=== PATIENT | male | born 1950 | race Caucasian/White ===

== ENCOUNTER 2016-08-26 17:44 | Emergency (ER) | payer OTHER ==
--- NOTE | 2016-08-26 18:56 | DIAGNOSTIC IMAGING REPORT ---
PROCEDURE: XR CHEST 2 VIEW INDICATION: FEVER TECHNIQUE: PA and lateral views. COMPARISON: Compared to chest x-ray from acute abdominal series on 10/03/2015. FINDINGS: Allowing for suboptimal inspiration, lungs are clear. Heart and mediastinum are normal. There mild degenerative changes thoracic spine with mild 10% old compression deformities of mid thoracic vertebral bodies. IMPRESSION: 1. Negative chest.
--- NOTE | 2016-08-26 19:06 | DIAGNOSTIC IMAGING REPORT ---
PROCEDURE: CT HEAD W/WO CONTRAST INDICATION: HX TUMOR. FEVER. ALTERED. TECHNIQUE: Axial scans before and after 75 ml of Isovue 300 through the head, with coronal and sagittal re-formations COMPARISON: Brain MRI 05/15/2013. FINDINGS: Interval left frontotemporal craniotomy. 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 Invasion of the left cavernous sinus and encasement of the left carotid artery are unchanged. Invasion of the left sphenoid sinus and left orbital apex are V I there is displacement of the left side of the optic chiasm. unchanged. There is a new 2 x 3 cm area of left frontal postsurgical encephalomalacia inferiorly. There is no acute hemorrhage, acute CVA or midline shift. Sulci and ventricular system are unremarkable. Mastoids and visualized sinuses are clear. IMPRESSION: 1. No acute intracranial abnormality 2. 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 Postoperative encephalomalacia of the left frontal lobe inferiorly 4. Results discussed with Dr. Masters
--- NOTE | 2016-08-27 06:24 | ED CLINICAL REPORT ---
Clinical Report - Physicians/Mid Levels [facility] [address] [place] [address] 08/26/2016 17:46 Patient: KUN BENEDICT Arrived- By ambulance. Historian- patient, EMS personnel and family. HISTORY OF PRESENT ILLNESS Chief Complaint: CONFUSION. This started today and is still present (staying the same). It was abrupt in onset and has been constant but is not gone now. Patient was last known well (yesterday). The patient has been confused. (patient unable to communicate and problems with word finding). No weakness or numbness. No difficulty walking. He has had one recent fall (today). This was not associated with loss of consciousness. Usually is alert and oriented X3 and usually has normal mobility. (patient with hx of brain tumor. FAST exam negative per EMS. Patient febrile on EMS report however patient without subjective fever or chills.). Similar symptoms previously: None. Recent medical care: Not recently seen/assessed. REVIEW OF SYSTEMS No fever, headache, chest pain or skin rash. All systems otherwise negative, except as recorded above. PAST HISTORY See nurses notes. Medications: Testosterone Transdermal. Synthroid Oral. Hydrocortisone Oral. Allergies: No Known Drug Allergy. SOCIAL HISTORY Never smoker. Occasional alcohol use. No drug use. No recent travel. Is a local resident. FAMILY HISTORY Negative. ADDITIONAL NOTES The nursing notes have been reviewed. PHYSICAL EXAM Vital Signs: 08/26/2016 22:30 BP: 135/73. HR: 108. RR: 23. O2 saturation: 92%. Blood pressure normal. Oxygen saturation normal. Appearance: Alert. No acute distress. Head: Head atraumatic. Eyes: Pupillary exam: (left constricts less that the right). Right pupil 3mm, round and reactive to light directly and consensually and with accommodation. Left pupil: 3mm, round and reactive to light directly and consensually and with accommodation. ENT: Normal ENT inspection. Airway intact. Moist mucous membranes. Pharynx normal. (old scar to scalp on left. well healed. remote.). Neck: Normal inspection. Neck supple. CVS: Normal heart rate and rhythm. Heart sounds normal. Pulses normal. Respiratory: No respiratory distress. Breath sounds normal. Abdomen: Soft and nontender. No organomegaly. Back: Normal inspection. Skin: Skin warm and dry. Normal skin color. No rash. Normal skin turgor. Extremities: Extremities exhibit normal ROM. No lower extremity edema. Neuro: Alert. Mood/affect normal. Moderate dysphasia and dysarthria. Cranial nerves normal (as tested). No abnormal finger-nose test. No motor deficit. No sensory deficit. Reflexes normal. Normal gait. LABS, X-RAYS, AND EKG CT Head: No hemorrhage and no midline shift. (midline mass that is smaller when compared to prior exam on 2013 MRI. No significant edema.). Head CT performed with and without contrast. The study was independently viewed by me and interpreted by the radiologist. The study was discussed with the radiologist (via phone and pacs). Laboratory Tests: CBC w Diff: (EDUARDO: 08/26/2016 18:00) ( [facility] [place] 08/26/2016 18:21) Final results Test Result Flag Units (Reference) WHITE BLOOD COUNT 13.2 H K/uL (4.5-11.5) RED BLOOD COUNT 5.11 M/uL (4.50-5.90) HEMOGLOBIN 15.6 gm/dL (13.5-17.5) HEMATOCRIT 46.6 % (41.0-53.0) MEAN CELL VOLUME 91 fL (80-100) MEAN CORPUSCULAR HGB 31 pg (26-34) MEAN CORPUSCULAR HGB CONC 34 g/dL (31-37) RED CELL DISTRIBUTION WIDTH 14.1 % (11.6-14.8) PLATELET COUNT 280 K/uL (150-400) NEUTROPHIL % 75.8 H % (50-75) LYMPH % 13.2 L % (25-40) MONO % 9.9 % (3-14) EOSINOPHIL % 0.7 % (0-4) BASOPHIL % 0.4 % (0-2) PT with INR: (EDUARDO: 08/26/2016 18:00) ( MsgRcvd 08/26/2016 18:27) Final results Test Result Flag Units (Reference) INR 1.0 (0.8-1.2) Low Intensity Therapy: INR 1.5-2.0 PT range 18.5-23.1Mod.Intensity Therapy: INR 2.0-3.0 PT range 23.1-31.5High Intensity Therapy: INR 2.5-3.5 PT range 27.4-35.5High Intensity Therapy 2: INR 3.0-4.0 PT range 31.5-39.3 APTT 38 H SECONDS (24-34) Lactate, Serum: (EDUARDO: 08/26/2016 18:00) ( MsgRcvd 08/26/2016 18:58) Final results Test Result Flag Units (Reference) LACTIC ACID 1.5 mmol/L (0.4-2.0) [id number]: (EDUARDO: 08/26/2016 18:00) ( MsgRcvd 08/26/2016 18:59) Final results Test Result Flag Units (Reference) PROCALCITONIN <0.5 ng/mL (0-0.5) PCT Concentration: Interpretation : Risk/option for action PCT <=0.5 ng/mL : Systemic : Low risk forinfection(sepsis): progression to severeis not likely. : systemic infection.Local bacterial : CAUTION-PCT levelsinfection is : below 0.5 ng/mL do notpossible. : exclude an infection,because localizedinfections (withoutsystemic signs) may beassociated with suchlow levels. If PCT ismeasured very earlyafter a bacterialchallenge (usually <6hours), these valuesmay still be low. Inthis case PCT shouldbe re-assessed 6-24hours later. PCT >0.5 and : Systemic infection: Moderate risk for<= 2 ng/mL : (sepsis) is : progression to severepossible, but : systemic infection.other conditions : The patient should beare known to : closely monitoredelevate PCT. : both clinically andby re-assessing PCTwithin 6-24 hours. PCT > 2 ng/mL : Systemic infection: High risk for(sepsis) is likely: progression to severeunless other : systemic infection.causes are known. : PCT >= 10 ng/mL : Important systemic: High likelihood ofinflammatory : severe sepsis orresponse, almost : septic shock.exclusively due to:severe bacterial :sepsis or septic :shock. : CMP: (EDUARDO: 08/26/2016 18:00) ( MsgRcvd 08/26/2016 18:58) Final results Test Result Flag Units (Reference) GLUCOSE 101 mg/dL (70-110) BUN 13 mg/dL (7-18) CREATININE 1.1 mg/dL (0.6-1.3) Estimated GFR >60 mL/min Estimated GFR- >60 mL/min Note: Persistent reduction over 3 months in eGFR<60 mL/min/1.73 m2 defines CKD. Patients with eGFR values>=60 mL/min/1.73 m2 may also have CKD if evidence ofpersistent proteinuria. Additional information may be foundat www.kidney.org. SODIUM 141 mmol/L (136-145) POTASSIUM 4.2 mmol/L (3.5-5.1) CHLORIDE 102 mmol/L (98-107) CARBON DIOXIDE 32 mmol/L (21-32) CALCIUM 8.6 mg/dL (8.5-10.1) TOTAL PROTEIN 7.1 g/dL (6.4-8.2) ALBUMIN 3.6 g/dL (3.3-5.0) BILIRUBIN, TOTAL 0.9 mg/dL (0.0-1.0) ALKALINE PHOSPHATASE 51 U/L (46-116) AST (SGOT) 47 H U/L (15-37) ALT (SGPT) 38 U/L (12-78) . PROGRESS AND PROCEDURES Course of Care: The patient is a pleasant 66 yo male with hx of brain tumor and expressive aphasia. Able to follow commands and understands speech. Appears to have word finding problems. Had discussion with patient about time of onset and hx. Patient last known well yesterday per son. No clear time of onset and hx of brain tumor. Patient is not a candidate for TPA. Patient with brain tumor and need for evaluation with CT w and wo ordered. Patient agreeable to plan. Code stroke not called due to patient not being a candidate for TPA and unclear time of onset. NIH stroke scale of 4 Work up shows patient with mass. Had discussion about mass and possble symptoms and need for further evaluation. Consult placed to patient's neurologist at . Spoke with Dr. Monzon who felt the patient should be evaluated for stroke first for his symptoms. Spoke with stroke neuro at [facility] who states there is a likely cause and effect with the mass and need for the patient to be admitted to under Dr. Lackey. Spoke with patient and son about consults and need to admit patient for further evaluation and managment. At this time patient resting in bed in no acute distress. Informed consent obtained via phone for transfer from son. patient to be transported via ground EMS to . No other concerns at this time. Patient's infectious work up is negative at this time. Chest is clear and UA is normal. Patient has been afebrile since being in the ED. Do not feel abx are warranted at this time. Symptoms like due to tumor not infection. Patient to be transferred for further work up and evaluation. Critical care performed (65 minutes). Time is exclusive of separately billable procedures. Time includes: direct patient care, patient reassessment, coordination of patient care, interpretation of data (laboratory data and chest xrays), review of patient's medical records, medical consultation, family consultation regarding treatment decisions and documentation of patient care. Consult obtained from neurology. and stroke neuro. Disposition: Transferred to [facility]. 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 (Electronically signed by Donte Masters Dr. 08/26/2016 23:23)
--- NOTE | 2016-08-27 06:24 | ED NURSING NOTES ---
Clinical Report - Nurses [place] [address] [place] [address] 08/26/2016 17:46 Patient: KUN BENEDICT TRIAGE Triage time 1750 pm. Acuity: LEVEL 2. Chief Complaint: FALL, onto a carpeted surface ([place]). --18:20 Mattoon, November, R.N. 18:14 08/26/16. BP: 124/76 (regular adult cuff) taken on the left arm, while sitting. HR: 109 (tachycardic). RR: 16. O2 saturation: 97% on room air. Temp: 99.5 F (oral). --18:20 Mattoon, November, R.N. Weight: 72.5 kg estimated. Height/Length: 67 inches Estimated. BMI: 25.1. --18:13 Bruno, November, R.N. Medications Hydrocortisone Oral. --18:14 Bruno, November, R.N. Synthroid Oral. --18:15 Mattoon, November, R.N. Testosterone Transdermal. --18:45 Mattoon, November, R.N. Medication/allergy information source: the patient and EMS (Son Alonso). --18:20 Bruno, November, R.N. Allergies No Known Drug Allergy. --18:15 Bruno, November, R.N. History Historian: patient and family. Accompanied by family and son (Alonso). This occurred (90 minutes). ( Patient complains of back pain and speech is garbled). 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 Trauma activation: Pre-hospital notification of patient arrival was received. SOCIAL HX: Never smoker. Occasional alcohol use. ABUSE ASSESSMENT: No report of abuse. --18:20 Mattoon, November, R.N. Interventions ID band on patient. To treatment room. --18:20 Bruno, November, R.N. PHYSICAL ASSESSMENT To room via stretcher. GENERAL / NEURO / PSYCH: Alert. The patient is disoriented to place, time and situation. Not disoriented to person. HEENT: Pupils equal, round and reactive to light. RESPIRATORY: Respirations not labored. Chest nontender. Breath sounds within normal limits. CVS: Normal heart rate and rhythm. Pulses within normal limits. Capillary refill less than 2 seconds. GI / : Abdomen soft and nontender. EXTREMITIES: Extremities exhibit normal ROM. SKIN: Skin intact. Skin is warm and dry. ( slight amount of dried blood on bottom lip). BACK: Normal inspection of the back. ( No pain noted on palapation). --18:22 Bruno November RElmoN. NURSING PROGRESS NOTES Patient transported to [facility] by stretcher with tech. (1800 pm). --18:22 BrunoNovember RElmoNElmo 18:08 08/26/2016 Site #1 started via IV in the left antecubital space with an 18g angiocath, with aseptic technique and good blood return; two attempts. Blood drawn: rainbow set and cultures x1. Labeled in the presence of the patient and sent to the lab. Saline lock flushed with 10 mL saline. --18:23 Bruno November, RElmoN. Patient gowned. Two patient identifiers checked. :family confirmed. Call light placed in reach. Side rails up x 2. Bed placed in lowest position. Brakes of bed on. --18:23 BrunoNovember RElmoN. 18:40 08/26/2016 Started bag #1 1000 mL IV Fluids IV NS (Saline); bolus of 1000 mL over 1 hour(s) via site #1 via IV pump. Allergies verified and confirmed 5 rights. IV patency established. IV site checked: no pain, redness, or swelling. IV flushed thoroughly pre- and post-medication administration. --18:40 Brunonovember RElmoN. 18:40 08/26/16. BP: 130/80. HR: 107. RR: 16. O2 saturation: 95% on room air. --18:42 Bruno November R.N. Monitoring of patient in place. Pulse oximeter applied. power plant assistant applied- Lead II and V5; monitor alarms on. NIBP monitor applied; monitor alarms on. Patient gowned. Reassurance given. Two patient identifiers checked. Call light placed in reach. Side rails up x 2. Bed placed in lowest position. Brakes of bed on. --18:43 Mattoonnovember R.N. 19:02 08/26/16. BP: 131/79. HR: 96. RR: 22. O2 saturation: 95%. --19:02 Mattoonnovember R.N. 19:45 08/26/2016 IV Fluids IV NS Discontinued: bag #1 completed. Total amount infused: 1000 mL. IV patency established. IV site checked: no pain, redness, or swelling. IV flushed thoroughly. --20:31 Mattoonnovember R.N. 20:32 08/26/2016 Started bag #1 1000 mL IV Fluids IV NS (Saline); at 250 mL/hr over 4 hour(s) via site #1 via IV pump. Allergies verified and confirmed 5 rights. IV patency established. IV site checked: no pain, redness, or swelling. IV flushed thoroughly pre- and post-medication administration. --20:37 Bruno November RPedro. Patient gowned. Two patient identifiers checked. Call light placed in reach. Side rails up x 2. Bed placed in lowest position. Brakes of bed on. --20:37 Mattoonnovember R.N. 20:36 08/26/16. BP: 131/81. HR: 100. RR: 21. O2 saturation: 92%. Temp: 98.7 F (oral). --20:37 Mattoon November R.N. Two patient identifiers checked. Call light placed in reach. Side rails up x 2. Bed placed in lowest position. Brakes of bed on. --21:33 Mattoonnovember R.N. 21:32 08/26/16. BP: 123/71. HR: 105. RR: 25. O2 saturation: 97%. --21:33 Bruno November RElmoN. Family informed about plan of care (Advised Son Alonso that transfer of care to 4N phone number [phone]). ( Told son that medic will be arriving about 1120 pm to night to transport his father to . At this time he has no further questions). --22:47 Bruno November, R.N. 20:08/26/16. BP: 142/119. HR: 107. RR: 18. O2 saturation: 86%. --22:51 Anita Carr, R.N. 20:08/26/16. BP: 134/88. HR: 105. RR: 23. O2 saturation: 92%. --22:52 Anita Carr, R.N. 20:08/26/16. BP: 143/86. HR: 105. RR: 22. O2 saturation: 94%. --22:52 Anita Carr, R.N. 21:08/26/16. BP: 125/112. HR: 105. RR: 23. O2 saturation: 94%. --22:52 Anita Carr, R.N. 21:08/26/16. BP: 142/73. HR: 105. RR: 23. O2 saturation: 94%. --22:53 Anita Carr, R.N. <<STRICKEN ENTRY-- 21:08/26/16. BP: 142/73. HR: 105. RR: 23. O2 saturation: 94%. --22:53 BrunoAnita kidd, R.N. --END STRIKE>> Correction. --22:54 Mattoon, Anita, R.N. 21:08/26/16. BP: 128/74. HR: 104. RR: 24. O2 saturation: 96%. --22:54 Bruno, Anita, R.N. 21:08/26/16. BP: 127/73. HR: 109. RR: 23. O2 saturation: 97%. --22:55 BrunoAnita kidd, R.N. 22:08/26/16. BP: 122/73. HR: 106. RR: 24. O2 saturation: 91%. --22:56 BrunoAnita kidd, R.N. 22:08/26/16. BP: 125/72. HR: 103. RR: 24. O2 saturation: 92%. --22:56 Bruno, Anita, R.N. 22:08/26/16. BP: 135/73. HR: 108. RR: 23. O2 saturation: 92%. --22:57 MattoonNovember, R.N. Care transferred and report given (Crispin @ 4 [address]). --23:09 BrunoNovember, R.N. Care transferred and report given (RUPALI RN). --23:27 MattoonNovember, R.N. DISPOSITION / DISCHARGE Report was given to a nurse via a phone call. Report included patient's care, treatment, medications, reviewed medication reconcilliation, and condition (including any recent changes or anticipated changes). All questions were answered. Report was acknowledged and care was transferred. ( Radiology images pushed to ). --23:10 MattoonNovember, R.N. Departure time: 0005. Transferred. Transported via ambulance by nurse and transport team with monitor, IV, O2, emergency medications and ambu bag. --00:05 Femi Cardoza R.N. 00:04 08/27/16. BP: 150/66. HR: 100. RR: 16. O2 saturation: 98%. Temp: 98 F. Pain level now 0/10. --00:05 Femi Cardoza R.N. Locked/Released at 08/27/2016 6:23 by Femi Cardoza R.N.
--- NOTE | 2016-08-27 06:24 | ED MED RECONCILIATION SUMMARY ---
Patient: KUN BENEDICT Medication Reconciliation Report [facility] VisitID: [id number] [address] [place] [address] 66y, M Registration Date/Time: 08/26/2016 Weight: 72.5 kg Height/Length: 67 in. BMI: 25.1 ALLERGIES: No Known Drug Allergy The patient's Home Medications are listed below: THE FOLLOWING MEDICATIONS NEED TO BE RECONCILED: Hydrocortisone Oral Synthroid Oral Testosterone Transdermal The source(s) of the original Home Medication information: patient EMS Martni Gupta The following Medications were given to the patient in the Emergency Department: IV NS IV Fluids bolus 1000 mL over 1 hour(s), administered: 08/26/2016 6:40:00 PM IV NS IV Fluids bolus 0, then 250 mL/hr, administered: 08/26/2016 8:32:00 PM The following Medications were prescribed to the patient: None.
--- NOTE | 2016-08-27 06:24 | ED ORDER SUMMARY ---
..... Patient: KUN BENEDICT OrderSheet [facility] VisitID: [id number] [place] [address] 66y, M Registration Date/Time: 08/26/2016 ORDER SHEET Weight: 72.5 kg (estimated) Allergies: No Known Drug Allergy GENERAL ORDERS: Chest 2V Urgent (17:55 08/26/2016 Mera Durán) (Ack 18:03 NHouse ER Tech1) (18:40 ABarnum R.N.) CT Head w/wo Cont (No) (n/a. do not need to wait for it) Urgent (17:56 08/26/2016 Mera Durán) (Ack 18:03 NHouse ER Tech1) (18:24 ABarnum R.N.) Towel Hemmer (Continuous) (altered mental status) (17:56 08/26/2016 Mera Durán) (Ack 18:23 ABarnum R.N.) (18:24 ABarnum R.N.) CBC w Diff Urgent (17:56 08/26/2016 Mera Durán) (Ack 18:03 NHouse ER Tech1) (18:23 ABarnum R.N.) CMP Urgent (17:56 08/26/2016 Mera Durán) (Ack 18:03 NHouse ER Tech1) (18:23 ABarnum R.N.) UA-Culture if indicated Urgent (17:56 08/26/2016 Mera Durán) (Ack 18:03 NHouse ER Tech1) (20:30 ABarnum R.N.) PT with INR Urgent (17:56 08/26/2016 Mera Durán) (Ack 18:03 NHouse ER Tech1) (18:23 ABarnum R.N.) PTT Urgent (17:56 08/26/2016 Mera Durán) (Ack 18:03 NHouse ER Tech1) (18:23 ABarnum R.N.) Lactate, Serum Urgent (17:56 08/26/2016 Mera Durán) (Ack 18:03 NHouse ER Tech1) (18:23 ABarnum R.N.) PCT (Procalcitonin) Urgent (17:56 08/26/2016 Mera Durán) (Ack 18:03 NHouse ER Tech1) (18:23 ABarnum R.N.) Pulse oximeter (17:56 08/26/2016 Mera Durán) (Ack 18:23 ABarnum R.N.) (18:24 ABarnum R.N.) - (consult neurosurgery at [facility]) (19:15 08/26/2016 Mera Durán) (Ack 19:22 NHouse ER Tech1) (19:59 NHouse ER Tech1) MEDICATION ORDERS: IV FLUIDS: IV NS : initial bolus 1000 mL (1000 mL/hr), then none - for X1 (NOW) (17:56 08/26/2016 Mera Durán) (Ack 18:24 ABarnum R.N.) (18:40 ABarnum R.N.) IV NS with Normal Saline 1 Liter: initial bolus none -, then 250 mL/hr for 4h (NOW); Kam (20:32 08/26/2016 ABarnum R.N. verbal order read back to Mera Durán) (20:37 ABarnum R.N.) ORDER SHEET NOTES: [Electronically signed by Donte Masters Dr. (23:23 08/26/2016)] [Electronically signed by Femi Cardoza R.N. (06:23 08/27/2016)] [Electronically locked/signed by Femi Cardoza R.N. (06:08/27/2016)]
--- NOTE | 2016-08-27 06:24 | ED MAR SUMMARY ---
..... Medication Administration Record [facility] [address] [place] [address] Patient: KUN BENEDICT Visit ID: [id number] 66y, M Weight: 72.5 kg Height/Length: 67 in BMI: 25.1 ALLERGIES: No Known Drug Allergy Start 18:40 08/26/2016 Anita Carr R.N., Stop 19:45 08/26/2016 Anita Carr R.N. Medication Administered: IV NS (SALINE), Dose: IV Fluids, Bolus: 1000 mL over 1 hour(s), Dispensed: 1000 mL bag, Site: #1 left AC. Medication Ordered: IV NS : initial bolus 1000 mL (1000 mL/hr), then none - for X1 (NOW). Start 20:32 08/26/2016 Anita Carr RElmoNElmo Medication Administered: IV NS (SALINE), Dose: IV Fluids over 4 hour(s), Rate: 250 mL/hr, Dispensed: 1000 mL bag, Site: #1 left AC. Medication Ordered: IV NS with Normal Saline 1 Liter: initial bolus none -, then 250 mL/hr for 4h (NOW); Kam.
--- NOTE | 2016-08-27 06:24 | ED MAR SUMMARY ---
..... Medication Administration Record [facility] [address] [place] [address] Patient: KUN BENEDICT Visit ID: [id number] 66y, M Weight: 72.5 kg Height/Length: 67 in BMI: 25.1 ALLERGIES: No Known Drug Allergy Start 18:40 08/26/2016 Anita Carr R.N., Stop 19:45 08/26/2016 Anita Carr R.N. Medication Administered: IV NS (SALINE), Dose: IV Fluids, Bolus: 1000 mL over 1 hour(s), Dispensed: 1000 mL bag, Site: #1 left AC. Medication Ordered: IV NS : initial bolus 1000 mL (1000 mL/hr), then none - for X1 (NOW). Start 20:32 08/26/2016 Anita Carr RElmoNElmo Medication Administered: IV NS (SALINE), Dose: IV Fluids over 4 hour(s), Rate: 250 mL/hr, Dispensed: 1000 mL bag, Site: #1 left AC. Medication Ordered: IV NS with Normal Saline 1 Liter: initial bolus none -, then 250 mL/hr for 4h (NOW); Kam.
--- NOTE | 2016-08-27 06:24 | ED MED RECONCILIATION SUMMARY ---
Patient: KUN BENEDICT Medication Reconciliation Report [facility] VisitID: [id number] [address] [place] [address] 66y, M Registration Date/Time: 08/26/2016 Weight: 72.5 kg Height/Length: 67 in. BMI: 25.1 ALLERGIES: No Known Drug Allergy The patient's Home Medications are listed below: THE FOLLOWING MEDICATIONS NEED TO BE RECONCILED: Hydrocortisone Oral Synthroid Oral Testosterone Transdermal The source(s) of the original Home Medication information: patient EMS Martin Gupta The following Medications were given to the patient in the Emergency Department: IV NS IV Fluids bolus 1000 mL over 1 hour(s), administered: 08/26/2016 6:40:00 PM IV NS IV Fluids bolus 0, then 250 mL/hr, administered: 08/26/2016 8:32:00 PM The following Medications were prescribed to the patient: None.
--- NOTE | 2016-08-27 06:24 | ED ORDER SUMMARY ---
..... Patient: KUN BENEDICT OrderSheet [facility] VisitID: [id number] [place] [address] 66y, M Registration Date/Time: 08/26/2016 ORDER SHEET Weight: 72.5 kg (estimated) Allergies: No Known Drug Allergy GENERAL ORDERS: Chest 2V Urgent (17:55 08/26/2016 Mera Durán) (Ack 18:03 NHouse ER Tech1) (18:40 ABarnum R.N.) CT Head w/wo Cont (No) (n/a. do not need to wait for it) Urgent (17:56 08/26/2016 Mera Durán) (Ack 18:03 NHouse ER Tech1) (18:24 ABarnum R.N.) Manager Medical Affairs (Continuous) (altered mental status) (17:56 08/26/2016 Mera Durán) (Ack 18:23 ABarnum R.N.) (18:24 ABarnum R.N.) CBC w Diff Urgent (17:56 08/26/2016 Mera Durán) (Ack 18:03 NHouse ER Tech1) (18:23 ABarnum R.N.) CMP Urgent (17:56 08/26/2016 Mera Durán) (Ack 18:03 NHouse ER Tech1) (18:23 ABarnum R.N.) UA-Culture if indicated Urgent (17:56 08/26/2016 Mera Durán) (Ack 18:03 NHouse ER Tech1) (20:30 ABarnum R.N.) PT with INR Urgent (17:56 08/26/2016 Mera Durán) (Ack 18:03 NHouse ER Tech1) (18:23 ABarnum R.N.) PTT Urgent (17:56 08/26/2016 Mera Durán) (Ack 18:03 NHouse ER Tech1) (18:23 ABarnum R.N.) Lactate, Serum Urgent (17:56 08/26/2016 Mera Durán) (Ack 18:03 NHouse ER Tech1) (18:23 ABarnum R.N.) PCT (Procalcitonin) Urgent (17:56 08/26/2016 Mera Durán) (Ack 18:03 NHouse ER Tech1) (18:23 ABarnum R.N.) Pulse oximeter (17:56 08/26/2016 Mera Durán) (Ack 18:23 ABarnum R.N.) (18:24 ABarnum R.N.) - (consult neurosurgery at [facility]) (19:15 08/26/2016 Mera Durán) (Ack 19:22 NHouse ER Tech1) (19:59 NHouse ER Tech1) MEDICATION ORDERS: IV FLUIDS: IV NS : initial bolus 1000 mL (1000 mL/hr), then none - for X1 (NOW) (17:56 08/26/2016 Mera Durán) (Ack 18:24 ABarnum R.N.) (18:40 ABarnum R.N.) IV NS with Normal Saline 1 Liter: initial bolus none -, then 250 mL/hr for 4h (NOW); Kam (20:32 08/26/2016 ABarnum R.N. verbal order read back to Mera Durán) (20:37 ABarnum R.N.) ORDER SHEET NOTES: [Electronically signed by Donte Masters Dr. (23:23 08/26/2016)] [Electronically signed by Femi Cardoza R.N. (06:23 08/27/2016)] [Electronically locked/signed by Femi Cardoza R.N. (06:08/27/2016)]
--- NOTE | 2016-08-27 06:24 | ED DISCHARGE INSTRUCTIONS ---
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 (Electronically signed by Donte Masters Dr. 08/26/2016 23:23)
--- NOTE | 2016-08-27 06:24 | ED NURSING NOTES ---
Clinical Report - Nurses [place] [address] [place] [address] 08/26/2016 17:46 Patient: KUN BENEDICT TRIAGE Triage time 1750 pm. Acuity: LEVEL 2. Chief Complaint: FALL, onto a carpeted surface ([facility]). --18:20 Waggoner, November, R.N. 18:14 08/26/16. BP: 124/76 (regular adult cuff) taken on the left arm, while sitting. HR: 109 (tachycardic). RR: 16. O2 saturation: 97% on room air. Temp: 99.5 F (oral). --18:20 Waggoner, November, R.N. Weight: 72.5 kg estimated. Height/Length: 67 inches Estimated. BMI: 25.1. --18:13 Bruno, November, R.N. Medications Hydrocortisone Oral. --18:14 Bruno, November, R.N. Synthroid Oral. --18:15 Waggoner, November, R.N. Testosterone Transdermal. --18:45 Waggoner, November, R.N. Medication/allergy information source: the patient and EMS (Son Alonso). --18:20 Bruno, November, R.N. Allergies No Known Drug Allergy. --18:15 Bruno, November, R.N. History Historian: patient and family. Accompanied by family and son (Alonso). This occurred (90 minutes). ( Patient complains of back pain and speech is garbled). Treatment CHIEF CONTROLLER STATION: None. Trauma activation: Pre-hospital notification of patient arrival was received. SOCIAL HX: Never smoker. Occasional alcohol use. ABUSE ASSESSMENT: No report of abuse. --18:20 Waggoner, November, R.N. Interventions ID band on patient. To treatment room. --18:20 Bruno, November, R.N. PHYSICAL ASSESSMENT To room via stretcher. GENERAL / NEURO / PSYCH: Alert. The patient is disoriented to place, time and situation. Not disoriented to person. HEENT: Pupils equal, round and reactive to light. RESPIRATORY: Respirations not labored. Chest nontender. Breath sounds within normal limits. CVS: Normal heart rate and rhythm. Pulses within normal limits. Capillary refill less than 2 seconds. GI / : Abdomen soft and nontender. EXTREMITIES: Extremities exhibit normal ROM. SKIN: Skin intact. Skin is warm and dry. ( slight amount of dried blood on bottom lip). BACK: Normal inspection of the back. ( No pain noted on palapation). --18:22 Bruno November RElmoN. NURSING PROGRESS NOTES [facility] tech. (1800 pm). --18:22 BrunoNovember RElmoNElmo 18:08 08/26/2016 Site #1 started via IV in the left antecubital space with an 18g angiocath, with aseptic technique and good blood return; two attempts. Blood drawn: rainbow set and cultures x1. Labeled in the presence of the patient and sent to the lab. Saline lock flushed with 10 mL saline. --18:23 Bruno November, RElmoN. Patient gowned. Two patient identifiers checked. :family confirmed. Call light placed in reach. Side rails up x 2. Bed placed in lowest position. Brakes of bed on. --18:23 BrunoNovember RElmoN. 18:40 08/26/2016 Started bag #1 1000 mL IV Fluids IV NS (Saline); bolus of 1000 mL over 1 hour(s) via site #1 via IV pump. Allergies verified and confirmed 5 rights. IV patency established. IV site checked: no pain, redness, or swelling. IV flushed thoroughly pre- and post-medication administration. --18:40 Brunonovember RElmoN. 18:40 08/26/16. BP: 130/80. HR: 107. RR: 16. O2 saturation: 95% on room air. --18:42 Bruno November R.N. Monitoring of patient in place. Pulse oximeter applied. monitor technician applied- Lead II and V5; monitor alarms on. NIBP monitor applied; monitor alarms on. Patient gowned. Reassurance given. Two patient identifiers checked. Call light placed in reach. Side rails up x 2. Bed placed in lowest position. Brakes of bed on. --18:43 Waggonernovember R.N. 19:02 08/26/16. BP: 131/79. HR: 96. RR: 22. O2 saturation: 95%. --19:02 Waggonernovember R.N. 19:45 08/26/2016 IV Fluids IV NS Discontinued: bag #1 completed. Total amount infused: 1000 mL. IV patency established. IV site checked: no pain, redness, or swelling. IV flushed thoroughly. --20:31 Waggonernovember R.N. 20:32 08/26/2016 Started bag #1 1000 mL IV Fluids IV NS (Saline); at 250 mL/hr over 4 hour(s) via site #1 via IV pump. Allergies verified and confirmed 5 rights. IV patency established. IV site checked: no pain, redness, or swelling. IV flushed thoroughly pre- and post-medication administration. --20:37 Bruno November RPedro. Patient gowned. Two patient identifiers checked. Call light placed in reach. Side rails up x 2. Bed placed in lowest position. Brakes of bed on. --20:37 Waggonernovember R.N. 20:36 08/26/16. BP: 131/81. HR: 100. RR: 21. O2 saturation: 92%. Temp: 98.7 F (oral). --20:37 Waggoner November R.N. Two patient identifiers checked. Call light placed in reach. Side rails up x 2. Bed placed in lowest position. Brakes of bed on. --21:33 Waggonernovember R.N. 21:32 08/26/16. BP: 123/71. HR: 105. RR: 25. O2 saturation: 97%. --21:33 Bruno November RElmoN. Family informed about plan of care (Advised Son Alonso that transfer of care to 4N phone number [phone]). ( Told son that medic will be arriving about 1120 pm to night to transport his father to . At this time he has no further questions). --22:47 Bruno November, R.N. 20:08/26/16. BP: 142/119. HR: 107. RR: 18. O2 saturation: 86%. --22:51 Anita Carr, R.N. 20:08/26/16. BP: 134/88. HR: 105. RR: 23. O2 saturation: 92%. --22:52 Anita Carr, R.N. 20:08/26/16. BP: 143/86. HR: 105. RR: 22. O2 saturation: 94%. --22:52 Anita Carr, R.N. 21:08/26/16. BP: 125/112. HR: 105. RR: 23. O2 saturation: 94%. --22:52 Anita Carr, R.N. 21:08/26/16. BP: 142/73. HR: 105. RR: 23. O2 saturation: 94%. --22:53 Anita Carr, R.N. <<STRICKEN ENTRY-- 21:08/26/16. BP: 142/73. HR: 105. RR: 23. O2 saturation: 94%. --22:53 BrunoAnita kidd, R.N. --END STRIKE>> Correction. --22:54 Waggoner, Anita, R.N. 21:08/26/16. BP: 128/74. HR: 104. RR: 24. O2 saturation: 96%. --22:54 Bruno, Anita, R.N. 21:08/26/16. BP: 127/73. HR: 109. RR: 23. O2 saturation: 97%. --22:55 BrunoAnita kidd, R.N. 22:08/26/16. BP: 122/73. HR: 106. RR: 24. O2 saturation: 91%. --22:56 BrunoAnita kidd, R.N. 22:08/26/16. BP: 125/72. HR: 103. RR: 24. O2 saturation: 92%. --22:56 Bruno, Anita, R.N. 22:08/26/16. BP: 135/73. HR: 108. RR: 23. O2 saturation: 92%. --22:57 WaggonerNovember, R.N. Care transferred and report given ([facility]pin @ 4 [address]). --23:09 BrunoNovember, R.N. Care transferred and report given (RUPALI RN). --23:27 WaggonerNovember, R.N. DISPOSITION / DISCHARGE Report was given to a nurse via a phone call. Report included patient's care, treatment, medications, reviewed medication reconcilliation, and condition (including any recent changes or anticipated changes). All questions were answered. Report was acknowledged and care was transferred. ( Radiology images pushed to ). --23:10 WaggonerNovember, R.N. Departure time: 0005. Transferred. Transported via ambulance by nurse and transport team with monitor, IV, O2, emergency medications and ambu bag. --00:05 Femi Cardoza R.N. 00:04 08/27/16. BP: 150/66. HR: 100. RR: 16. O2 saturation: 98%. Temp: 98 F. Pain level now 0/10. --00:05 Femi Cardoza R.N. Locked/Released at 08/27/2016 6:23 by Femi Cardoza R.N.
--- NOTE | 2016-08-27 06:24 | ED DISCHARGE INSTRUCTIONS ---
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 (Electronically signed by Donte Masters Dr. 08/26/2016 23:23)
== END 2016-08-27 00:05 | disposition short-term general hospital (02) ==
LOC: ED SRH 17:44
DX: I63.9 Cerebral infarction, unspecified (principal); R93.0 Abnormal findings on diagnostic imaging of skull and head, not elsewhere classified
CPT/HCPCS: 90004; 90100; 92031; 93004; 94001; 94060; 95059